=== PATIENT | female | born 1965 | race Caucasian/White ===

== ENCOUNTER 2024-10-17 06:13 | Day surgery (SDC) | payer BC, SELFPAY ==
[2024-10-10 08:28] VITALS: BMI 32.3
[2024-10-10 12:25] VITALS: BMI 32.3
--- NOTE | 2024-10-17 | PATH_ITS ---
[facility] Accession Number: [id number] No. of containers..01 Tissue . 01 Material submitted: . ovary - BILATERAL FALLOPIAN TUBES AND OVARIES . 01 Diagnosis: BILATERAL FALLOPIAN TUBES AND OVARIES, BILATERAL SALPINGO-OOPHORECTOMY: First described fallopian tube, complete cross-sections; negative for significant atypia. First described ovary with rare benign inclusion cysts and no significant histomorphologic abnormality. Second described fallopian tube, complete cross-sections; negative for significant atypia. Second described ovary with rare, benign inclusion cysts and no significant histomorphologic abnormality. [facility] 10/21/2024 1252 Local . 01 Electronically signed: . Lee Ann Marroquin MD, Pathologist NPI- [id number] . 01 Gross description: . Received in formalin with two patient identifiers and bilateral fallopian tubes and ovaries, is a tubo-ovarian unit designated first ovary and first tube (tube: 4.8 x 0.9 cm; first ovary: 2 grams, 3.2 x 1.4 x 1.0 cm), inked blue. The second fallopian tube (4.2 x 0.7 cm) and second ovary (3 grams, 2.8 x 1.9 x 1.2 cm) are detached and are inked green. . Both tubes have violaceous smooth serosa with no cysts identified, and the lumen are stellate and unremarkable. . Both ovaries have [place] cerebriform external surfaces, and sectioning reveals unremarkable physiologic cut surface with no lesions or cysts identified. . Dredge Operator Supervisor sections are submitted as follows: A1: First fallopian tube to include one-half of bisected fimbriae and cross sections. A2: Second fallopian tube to include one-half of bisected fimbriae and cross sections. A3: First ovary. A4: Second ovary. ([id number]) /MRV 10/18/2024 1646 Local . 01 Pathologist provided ICD-10: R10.2 . 01 CPT . 414757 Specimen Comment: A courtesy copy of this report has been sent to [phone] Performed at: [address] [facility] [address] [address], [place], [place] [id number] MD Arcadio Murray MD Phone: [phone]
[2024-10-17 06:45] VITALS: BP 136/84; PULSE 63; RESP 17; TEMP 36.2; O2SAT 96
[2024-10-17] MEDS: ACETAMINOPHEN 325 MG TABLET 975 MG PO (06:45)
[2024-10-17] MEDS: LACTATED RINGERS 1,000 ML 42 ML IV (06:47)
[2024-10-17 06:53] VITALS: BMI 32.3
--- NOTE | 2024-10-17 07:24 | PM.GYNHP.1 ---
History of Present Illness History of Present Illness Reason for admission: pelvic pain Narrative: Emili Ding is a 59 year old female 2 Para 2 who presents for a diagnostic laparoscopy with possible lysis of adhesions due to persistent pelvic pain. She also had prominent vascularity at the vaginal cuff. Patient is s/p hysterectomy PFSH Medical History (Updated 10/10/24 @ 08:38 by Emily Alexander RN) Diverticulosis NIEVES (nonalcoholic steatohepatitis) HLD (hyperlipidemia) HTN (hypertension) Scoliosis Gout Foot pain Chicken pox (~1969) Irritable bowel syndrome GERD (gastroesophageal reflux disease) (~1999) Brain aneurysm HSV (herpes simplex virus) anogenital infection (~1982) Surgical History (Updated 10/10/24 @ 12:24 by Emily Alexander RN) History of surgical procedure Aneurysm (~2019) Anesthesia S/P left knee arthroscopy History of total vaginal hysterectomy (TVH) H/O rotator cuff surgery Previous back surgery Family History (Updated 07/28/24 @ 19:48 by Karon Crouch) Father History of heart disease Mother Hypertension Stroke Brother Hypertension Sister Hypertension Sister Hypertension Grandfather Stroke Grandfather Cancer Grandmother Cancer Social History household members: spouse Smoking Status: Never smoker alcohol intake: current Meds Home Medications and Allergies Home Medications Medication Instructions Recorded Confirmed Type aspirin 81 mg capsule 81 mg PO DAILY Brain aneurysm, 10/10/24 10/17/24 History stent atenolol 25 mg tablet 25 mg PO DAILY 10/10/24 10/17/24 History estradiol 0.5 mg tablet 0.5 mg PO DAILY 10/10/24 10/17/24 History lisinopril 20 mg tablet 20 mg PO DAILY 10/10/24 10/17/24 History Allergies Allergy/AdvReac Type Severity Reaction Status Date / Time chlorhexidine Allergy Severe Rash Verified 10/10/24 12:23 adhesive Allergy Mild blister Verified 06/22/24 13:57 Surgical Glue Allergy Severe Blister Uncoded 10/17/24 06:52 Exam Narrative Exam Narrative: HEENT: No thyromegaly, no anterior cervical or supraclavicular lymphadenopathy. Lungs:Clear to auscultation bilaterally, no wheezes. Cardiovascular: Regular rate and rhythm, no murmurs, rubs, or gallops. Abdomen: No scars. No hepatosplenomegaly. No masses palpable. External genitalia: Normal Vagina: Normal Cervix: Absent Bimanual exam: Uterus surgically absent Extremities: No edema Assessment & Plan Assessment & Plan narrative: Assessment: 59-year-old 2 para 2 with persistent pelvic pain and increased vascularity of the vaginal cuff Question of whether tubes and ovaries remain, they were not seen on imaging Plan: Diagnostic laparoscopy with possible lysis of adhesions Possible removal of tubes and ovaries The risks, benefits, and alternatives to the procedure were explained to the patient. The risks including bleeding, infection, injury to the bowel, bladder, or ureters. She also understands that there is a small chance of an open procedure. She understands all of these risks and agrees to proceed. A full par Q was held and consent form was signed. Time-Based Coding :: [TOTAL MINUTES] spent with patient and on the chart (including review of chart, obtaining history, exam, reviewing outside data, placing orders, documenting exam and treatment plan, and counseling patient) on [DATE].
[2024-10-17] MEDS: SCOPOLAMINE 1 PATCH TOP (07:27)
--- NOTE | 2024-10-17 08:14 | SUR.OPER ---
Lithotomy on padded OR bed, head on pillow, arms secured on padded arm boards at <90 degrees abduction. Legs secured in padded yellow fins stirrups.
[2024-10-17] MEDS: BUPIVACAINE 0.5% W/ EPI (PF) 30 ML VIAL INJ (08:42)
--- NOTE | 2024-10-17 09:15 | P.OP_ITS ---
Operative Date/Time/Diagnoses Date of procedure: 10/17/24 Time of procedure: 09:15 Pre-op diagnosis: Persistent pelvic pain Increased vascularity at the left vaginal cuff Post-op diagnosis: same Procedure & Clinicians Procedure: Procedures Operation Date: 10/17/24 07:45 Actual Procedure Side Surgeon p Diagnostic Laparoscopy with Lysis of Adhesions, BILATERAL SALPINGECTOMY AND OOPHRECTOMY Corrie Maki MD Indications: 59 year old with persistent left pelvic pain, and increased vascularity of the l eft vaginal cuff. Patient not sure if tubes and ovaries remain. Surgeon: Corrie Maki Anesthesia Type: General and Local Operative Notes Findings: Uterus surgically absent Normal right tube and ovary Normal appendix Normal liver and gallbladder Left tube and ovary adhesed to the vaginal cuff Closure Type: primary Specimen(s): left tube & ovary and right tube & ovary Estimated blood loss (mL): 10 Procedure in detail: After informed consent was obtained, the patient was taken to the operating room where she was placed in dorsal the supine position. After adequate general endotracheal anesthesia was achieved, she was placed in the dorsal lithotomy position, and prepped and draped in the usual sterile fashion. A time-out was performed. A we are going to watch Gal gabriel moistened sponge stick was placed into the vagina. Attention was then turned to the abdomen where 6 cc of 0.5% Marcaine with epinephrine were injected in the umbilical fold. A 5 mm incision was made. The Veress needle was placed into the peritoneal cavity, and its placement confirmed by aspiration and drop test. The abdominal cavity was insufflated with 3.2 L of CO2. The Veress needle was removed, and a 5 mm trocar was placed without difficulty. Two other 5 mm incisions were made after 6 cc of 0.5% Marcaine with epinephrine were injected, 4 cm lateral to the umbilicus on either side. Two 5 mm trocars were placed under direct visualization and the balloons inflated. The pelvis and abdomen were examined with findings noted above. The right tube and ovary were grasped with an atraumatic grasper. Using a power seal, the infundibulopelvic ligament on the right side was cauterized and cut. The right tube and ovary were placed in the right lower quadrant. There were significant adhesions between the left tube and ovary and the vaginal cuff. The tube and ovary were grasped with an atraumatic grasper. Using a combination of the endo Hayden with cut and the power seal with cautery and cut. The tube and ovary were from the vaginal cuff. Care was taken to avoid the ureter. The ureter was seen peristalsing. The power seal was then used to cauterize and cut the infundibulopelvic ligament on the left side. The left tube and ovary were placed in the right lower quadrant. 6 cc of 0.5% Marcaine with epinephrine were injected above the pubic symphysis through the previous incision. A 12 mm incision was made. A 12 mm trocar was placed under direct visualization. A small endobag was placed through the trocar and both tubes and ovaries were placed into the bag. The trocar was removed. The fascia was extended bluntly with a Leatha. The bag was brought up through the suprapubic incision. The fascia on the suprapubic incision was closed with 0 Vicryl in a running fashion. The abdomen was re-insufflated with carbon dioxide gas. The pelvis was examined and there was no bleeding noted. The instruments were removed from the abdomen. The CO2 was allowed to escape. All of the incisions were closed with 4-0 Monocryl in a subcuticular fashion. Steri-Strips and Allevyn dressings were placed. A moistened sponge stick was removed from the vagina. Sponge, lap, and instrument counts were correct x2. The patient tolerated the procedure well, and was taken to PACU in stable condition. Complications: none Post-operative Condition: stable Disposition: PACU Plan for aftercare: Home after recovery
[2024-10-17 09:21] VITALS: BP 95/59; PULSE 66; RESP 20; TEMP 36.1; O2SAT 99
[2024-10-17] MEDS: HYDROMORPHONE 1 MG INJ IV ×4 (09:23→09:37)
[2024-10-17 09:27] VITALS: BP 109/69; PULSE 67; RESP 14; O2SAT 99
[2024-10-17 09:32] VITALS: BP 118/69; PULSE 59; RESP 17; O2SAT 97
[2024-10-17] MEDS: OXYCODONE IR 5 MG TABLET PO ×2 (09:34→09:54)
--- NOTE | 2024-10-17 09:42 | PM.PREOP ---
Pre-operative Note Interval Note History & Physical reviewed/Exam performed by Physician: Yes Changes to H&P: No H&P completed within 30 days and has changed as indicated here:: 10/17/24
[2024-10-17 09:52] VITALS: BP 116/71; PULSE 53; RESP 15; TEMP 36.2; O2SAT 98
== END 2024-10-17 10:15 | disposition home or self-care (01) ==
PROVIDERS: PCP Family Medicine; Referring Provider Obstetrics & Gynecology; Visit Provider Obstetrics & Gynecology
PROC: (CPT 58661; principal; 2024-10-17 07:45)
DX: R10.2 Pelvic and perineal pain (principal); N73.6 Female pelvic peritoneal adhesions (postinfective); N83.292 Other ovarian cyst, left side; N83.291 Other ovarian cyst, right side
CPT/HCPCS: 58661; J1100; J1171; J1885; J2250; J2405; J2704; J3010